=== PATIENT | male | born 1965 | race Two or more races ===

== ENCOUNTER 2019-02-24 09:21 | Emergency (ER) | payer SELFPAY ==
[~2019-02-24] VITALS: Ht 177.8 cm; Wt 99.8 kg
[2019-02-24 09:36] VITALS: BP 121/75
[2019-02-24] MEDS ORDERED: FLUORESCEIN SOD 1 MG TEST STRIP LEFTEYE ONE (11:30)
[2019-02-24] MEDS ORDERED: TETRACAINE HCL 0.5% OPTH(EYE) SOLN 4ML LEFTEYE ONE (11:30)
== END 2019-02-24 13:14 | disposition home or self-care (01) ==
LOC: ER 09:27
DX: T15.02XA Foreign body in cornea, left eye, initial encounter (principal); X58.XXXA Exposure to other specified factors, initial encounter; Y93.89 Activity, other specified; Y99.8 Other external cause status; Y92.89 Other specified places as the place of occurrence of the external cause